=== PATIENT | male | born 1980 ===

== ENCOUNTER 2017-12-04 22:59 | Emergency (ER) | payer MEDICAID ==
[2017-12-04 23:04] VITALS: TEMP 98.2
--- NOTE | 2017-12-05 00:02 | ED PDOC ---
HPI: Psych/Substance Abuse Time Seen by Provider: 12/04/17 23:25 Chief Complaint (Nursing): Medical Clearance Chief Complaint (Provider): clearance for incarceration History Per: Patient History/Exam Limitations: no limitations Onset/Duration Of Symptoms: Hrs Current Symptoms Are (Timing): Still Present Additional Complaint(s): 37 y/o male here in police custody for medical and psychiatric clearance for incarceration. Patient states he feels anxious; has a history of depression and anxiety and did not take his medications today. Denies fever, headache, dizziness, chest pain, shortness of breath, palpitations, vomiting, drug or alcohol use. Patient denies suicidal/homicidal ideations Past Medical History Reviewed: Historical Data, Nursing Documentation, Vital Signs Vital Signs: Last Vital Signs Temp 98.2 F 12/04/17 23:01 Pulse 94 H 12/04/17 23:01 Resp 18 12/04/17 23:01 BP 128/68 12/04/17 23:01 Pulse Ox 99 12/04/17 23:01 - Medical History PMH: Anxiety, Depression - Family History Family History: States: No Known Family Hx - Allergies Allergies/Adverse Reactions: Allergies Allergy/AdvReac Type Severity Reaction Status Date / Time No Known Allergies Allergy Verified 12/04/17 23:01 Review of Systems ROS Statement: Except As Marked, All Systems Reviewed And Found Negative Psych: Positive for: Anxiety Physical Exam - Reviewed Nursing Documentation Reviewed: Yes Vital Signs Reviewed: Yes - Physical Exam Appears: Positive for: Well, Non-toxic, No Acute Distress Head Exam: Positive for: ATRAUMATIC, NORMAL INSPECTION, NORMOCEPHALIC Skin: Positive for: Normal Color Eye Exam: Positive for: Normal appearance ENT: Positive for: Normal ENT Inspection Cardiovascular/Chest: Positive for: Regular Rate, Rhythm Respiratory: Positive for: Normal Breath Sounds Gastrointestinal/Abdominal: Positive for: Normal Exam Back: Positive for: Normal Inspection Extremity: Positive for: Normal ROM Neurologic/Psych: Positive for: Alert, Oriented (x3) - ECG ECG: Positive for: Viewed By Me (reviewed by ED attending) ECG Rhythm: Positive for: Sinus Rhythm O2 Sat by Pulse Oximetry: 99 - Progress ED Course And Treament: ekg, crisis eval Patient evaluated by conversion worker and cleared for discharge as per Dr. Winchester 1:15 Patient sleeping; no signs of distress Patient stable for discharge into police custody Disposition - Clinical Impression Clinical Impression: Adjustment disorder, Anxiety - Patient ED Disposition Is Patient to be Admitted: No Counseled Patient/Family Regarding: Studies Performed, Diagnosis, Need For Followup - Disposition Disposition: Discharged/Transfer to Law Enforcement Disposition Time: 01:19 Condition: STABLE Additional Instructions: Patient medically and psychiatrically cleared for incarceration Instructions: Adjustment Disorder, Anxiety, Adult (DC) Forms: [employer] (French)
[2017-12-05 01:29] VITALS: BP 106/62; PULSE 97; RESP 16; O2SAT 95
--- NOTE | 2017-12-05 06:34 | CARD ---
APPROVED REPORT Date of service: 12/05/2017 EKG Measurement Heart [id number] <Conclusion> Normal sinus rhythm with sinus arrhythmia Normal ECG
== END 2017-12-05 01:25 | disposition home or self-care (01) ==
LOC: H.ER 22:59
DX: F43.22 Adjustment disorder with anxiety (principal); F32.9 Major depressive disorder, single episode, unspecified